=== PATIENT | male | born 1985 | race Two or more races ===

== ENCOUNTER 2021-09-06 09:02 | Day surgery (SDC) | payer BC ==
[2021-09-04 11:02] VITALS: BMI 24.7
[2021-09-06 09:41] VITALS: TEMP 97.7
[2021-09-06] MEDS ORDERED: PROPOFOL 20 ML ONE ×3 (10:36→11:55)
[2021-09-06] MEDS ORDERED: MIDAZOLAM HCL 2 MG/2 ML SINGLE DOSE VIAL ONE ×2 (10:37→11:24)
[2021-09-06] MEDS ORDERED: LIDOCAINE HCL 1%, 10 MG/ML (20ML VIAL) ONE (11:06)
[2021-09-06] MEDS ORDERED: BUPIVACAINE HCL 100 ML ONE (11:06)
[2021-09-06] MEDS ORDERED: KETOROLAC TROMETHAMINE 30 MG/1 ML VIAL ONE (11:54)
[2021-09-06] MEDS ORDERED: ceFAZolin SODIUM 1 GM VIAL ONE (11:54)
[2021-09-06] MEDS ORDERED: ONDANSETRON 4 MG/2 ML VIAL ONE (11:54)
[2021-09-06] MEDS ORDERED: DEXAMETHASONE SOD PHOSPHATE 4 MG/1 ML VIAL ONE (11:54)
[2021-09-06 13:55] VITALS: BP 115/84; PULSE 72
== END 2021-09-06 13:10 | disposition home or self-care (01) ==
LOC: FASU 09:02
PROVIDERS: ATTEND Orthopaedic Surgery
PROC: 0LB70ZZ Excision of Right Hand Tendon, Open Approach (ICD-10-PCS; 2021-09-06)
PROC: 01N50ZZ Release Median Nerve, Open Approach (ICD-10-PCS; principal; 2021-09-06 11:31)
DX: G56.01 Carpal tunnel syndrome, right upper limb (principal)
CPT/HCPCS: 88304-TC